=== PATIENT | female | born 1975 | race African-American/Black ===

== ENCOUNTER 2017-06-28 00:29 | Emergency (ER) | payer MEDICAID | END 2017-06-28 02:34 | disposition left against medical advice (07) | LOC: ER 00:29 | DX: Z53.21 Procedure and treatment not carried out due to patient leaving prior to being seen by health care provider (principal) ==

== ENCOUNTER 2017-12-23 20:19 | Emergency (ER) | payer MEDICAID ==
[~2017-12-23] VITALS: Ht 160 cm; Wt 79.0 kg
[2017-12-23] MEDS ORDERED: METOCLOPRAMIDE HCL 10MG TABLET PO ONE (22:30)
[2017-12-23] MEDS ORDERED: ACETAMINOPHEN 500MG TABLET PO ONE (22:30)
[2017-12-23] MEDS ORDERED: VISCOUS LIDOCAINE 2% 15 ML UDC PO STA (23:19)
[2017-12-23] MEDS ORDERED: MAGNESIUM/ALUMINUM HYDROXIDE/SIMETHICONE 30ML UDC PO STA (23:19)
[2017-12-23] MEDS ORDERED: DICYCLOMINE 10 MG/5 ML ORAL SYR PO STA (23:19)
[2017-12-23] MEDS ORDERED: ONDANSETRON 4MG ODT PO STA (23:19)
[2017-12-24 00:25] VITALS: BP 121/75
== END 2017-12-24 00:25 | disposition home or self-care (01) ==
LOC: ER 21:00
DX: R51 Headache (principal); R11.2 Nausea with vomiting, unspecified
CPT/HCPCS: 70450; 81025; 99284; Q0162; J8597